=== PATIENT | female | born 1985 | race African-American/Black ===

== ENCOUNTER 2017-12-03 14:04 | Emergency (ER) | payer OTHER ==
[~2017-12-03] VITALS: Ht 160 cm; Wt 77.1 kg
[2017-12-03 15:00] LABS: ABSOLUTE BASOPHIL COUNT 0 /CUMM (0.0-0.2); ABSOLUTE EOSINOPHIL COUNT 0.2 /CUMM (0.0-0.7); ABSOLUTE GRANULOCYTE CT 3.7 /CUMM (1.4-6.5); ABSOLUTE LYMPH COUNT 2.7 /CUMM (1.2-3.4); ABSOLUTE MONOCYTE COUNT 0.6 /CUMM (0.10-0.60); BASOPHIL % 0.4 % (0.0-2.0); EOSINOPHIL % 2.4 % (0-5); GRANULOCYTE % 51.3 % (42.2-75.2); HEMATOCRIT 40.2 % (37-47); MEAN CORPUSCULAR HGB 28.7 PG (27.0-31.0); MEAN CORPUSCULAR HGB CONC 33.2 G/DL (33.0-37.0); MEAN CORPUSCULAR VOLUME 86.4 FL (81.0-99.0); MEAN PLATELET VOLUME 7.1 FL (7.4-10.4); PLATELET COUNT 310 /CUMM (130-400); RBC DISTRIBUTION WIDTH 15.4 % (11.5-14.5); RED BLOOD CELL CT 4.65 /CUMM (4.20-5.40); WHITE BLOOD CELL COUNT 7.2 /CUMM (4.8-10.8)
--- NOTE | 2017-12-03 18:03 | ED GI/GU/ABDOMINAL COMPLAINT ---
History of Present Illness General Chief Complaint: Abdominal Pain/Flank Pain Stated Complaint: ABD PAIN x3 WEEKS Source: patient Exam Limitations: no limitations Vital Signs & Intake/Output Vital Signs & Intake/Output Vital Signs Date Time Temp Pulse Resp B/P B/P Pulse O2 O2 Flow FiO2 Mean Ox Delivery Rate 12/03 1713 Room Air 12/03 1427 96.8 72 16 158/11 97 Room Air Allergies Coded Allergies: NO KNOWN ALLERGIES (10/12/11) Reconcile Medications Tylenol With Codeine (Tylenol With Codeine #3 Tablet) 300 MG-30 MG TABLET 1 TAB PO Q4-6 PRN PRN pain Triage Note: PT PRESENTS TO THE ER C/O ABD PAIN FOR 3 WEEKS.. PT STARTED WHEN PT CHANGED HER BIRTHCONTROL 3 WEEKS AGO,. PT STATES THAT SHE HAS BEEN SEXUALLY ACTIVE UNPROTECTED. PT LMP 3 WEEKS AGO.. PT STATES THAT THE PAIN IS SHARP BURNING TWISTING.. PT STATES THAT SHE HAD A ABD US YESTERDAY AND HER PCP SAID THAT IT WAS NORMAL. PT STATES THAT THE PAIN WILL NOT STOP Triage Nurses Notes Reviewed? yes LMP (ages 10-50): unknown ? N Is pt currently ? No Onset: Gradual Duration: week(s): (3), changing over time, continues in ED, getting worse Timing: single episode today Quality/Severity: cramping Severity Numbers: 8 Location: generalized abdomen Radiation: no radiation Activities at Onset: none Prior Abdominal Problems: none Past Sexual History: Unobtainable at this time No Modifying Factors: none Modifying Factors: Worsens With: palpation. Associated Symptoms: nausea/vomiting HPI: 32-year-old female with no past medical history the center evaluation of abdominal pain. Patient states that she first noticed this pain about 3 weeks ago and has been persistent. The pain is located diffusely in the abdomen worse on the right side. There is no trauma or triggering event. The pain is present every day for the past 3 weeks but is worse on some days than others. She reports associated nausea but no vomiting. No chest pain shortness of breath back pain diarrhea or recent surgery recent trauma. She's been taking Tylenol and ibuprofen as needed for pain without much improvement. She never had this before. No urinary symptoms or vaginal discharge. She had an ultrasound done with her primary care doctor yesterday that was within normal limits. Past History Travel History Traveled to [place] past 21 day No Medical History Any Pertinent Medical History? see below for history Surgical History Surgical History: non-contributory Psychosocial History What is your primary language E[place]rean Tobacco Use: Quit >30 days ago Family History Hx Contributory? No Review of Systems Review of Systems Constitutional: Reports: no symptoms. EENTM: Reports: no symptoms. Respiratory: Reports: no symptoms. Cardiovascular: Reports: no symptoms. GI: Reports: see HPI, abdominal pain, nausea. Genitourinary: Reports: no symptoms. Musculoskeletal: Reports: no symptoms. Skin: Reports: no symptoms. Neurological/Psychological: Reports: no symptoms. Hematologic/Endocrine: Reports: no symptoms. Immunologic/Allergic: Reports: no symptoms. All Other Systems: Reviewed and Negative Physical Exam Physical Exam General Appearance: well developed/nourished, no apparent distress, alert, awake Head: atraumatic, normal appearance Eyes: Bilateral: normal appearance, PERRL, EOMI, normal inspection. Ears, Nose, Throat, Mouth: hearing grossly normal, moist mucous membrane Neck: normal inspection, supple, full range of motion Respiratory: normal breath sounds, chest non-tender, quiet respiration, lungs clear Cardiovascular: regular rate/rhythm, normal peripheral pulses Peripheral Pulses: 2+ radial (R), 2+ radial (L) Gastrointestinal: normal bowel sounds, soft, no organomegaly, tenderness ( DIFFUSE worse epigastric ) Back: normal inspection, normal range of motion, no vertebral tenderness Extremities: normal range of motion Neurologic/Psych: no motor/sensory deficits, awake, alert, oriented x 3, normal gait Skin: intact, normal color, warm/dry Core Measures ACS in differential dx? No Sepsis Present: No Sepsis Focused Exam Completed? No Progress Differential Diagnosis: appendicitis, biliary colic, bowel obstruction, colon cancer, cholecystitis, diverticulitis, ectopic , gastritis, kidney stone, ovarian cyst, ovarian torsion, PID/cervicitis, peptic ulcer, SBO, UTI/ pyelo Plan of Care: Orders Procedure Date/time Status Add-on Test (ER Only) 12/03 1554 Active URINALYSIS 12/03 1443 Complete URINE 12/03 1435 Complete COMPREHENSIVE METABOLIC PANEL 12/03 1435 Complete CBC WITHOUT DIFFERENTIAL 12/03 1435 Complete Laboratory Tests 12/03/17 1445: Anion Gap 14, Estimated GFR > 60, BUN/Creatinine Ratio 15.7, Glucose 83, Calcium 9.8, Total Bilirubin 0.5, AST 22, ALT 29, Alkaline Phosphatase 61, Total Protein 7.9, Albumin 4.6, Globulin 3.3, Albumin/Globulin Ratio 1.4, CBC w Diff NO MAN DIFF REQ, RBC 4.65, MCV 86.4, MCH 28.7, MCHC 33.2, RDW 15.4 H, MPV 7.1 L, Gran % 51.3, Lymphocytes % 37.4, Monocytes % 8.5, Eosinophils % 2.4, Basophils % 0.4, Absolute Granulocytes 3.7, Absolute Lymphocytes 2.7, Absolute Monocytes 0.6, Absolute Eosinophils 0.2, Absolute Basophils 0 12/03/17 1443: Urinalysis LIGHT H, Urine Color YEL, Urine Clarity CLEAR, Urine pH 7.0, Ur Specific [place] 1.025, Urine Protein NEG, Urine Ketones NEG, Urine Nitrite NEG, Urine Bilirubin NEG, Urine Urobilinogen 0.2, Ur Leukocyte Esterase NEG, Ur Microscopic SEDIMENT EXAMINED, Urine RBC 5-10 H, Urine WBC 1-3 H, Ur Epithelial Cells MOD H, Urine Hemoglobin MOD H, Urine Glucose NEG, Urine Test NEGATIVE Patient seen and evaluated. She is reporting diffuse abdominal pain worse on the right side and epigastric area. This been going on for 3 weeks constantly. No nausea vomiting or diarrhea. She states that sometimes the pain is worse with eating. On exam she has some epigastric tenderness. We'll check basic labs urinalysis and a CT scan of the abdomen and pelvis. Patient had an ultrasound done yesterday that was within normal limits. Patient was medicated with IV Toradol. Blood work is within normal limits. Urinalysis shows some hematuria patient is not having any urinary symptoms. She reports that the hematuria is chronic and has been evaluated by urology. The scan shows a 2.5cm diameter left ovarian cyst. No other acute findings. On reevaluation patient has no left pelvic or left lower quadrant tenderness. Her tenderness is in the right side and epigastric area. Considered ovarian torsion. Patient does reports an improvement with Toradol. Reviewed all results of today's visit with patient. Advised her to use omeprazole once or twice daily as needed for pain. Avoid greasy fatty spicy foods. Tylenol with codeine for severe pain only. Make a follow-up with a GI doctor primary care doctor and [facility]. Monitor symptoms return with any concerns. Discussed return precautions in detail patient agrees the plan. Diagnostic Imaging: Viewed by Me: CT Scan. Discussed w/RAD: CT Scan. Radiology Impression: PATIENT: RONAN PEREZ PRESENT AGE: 32 PATIENT ACCOUNT NO: [id number] : 87 LOCATION: [facility] ORDERING PHYSICIAN: Wilfrid LUGO SERVICE DATE: 12/03/17 EXAM TYPE: CAT - CT ABD & PELVIS W IV CONTRAST EXAMINATION: CT ABDOMEN AND PELVIS WITH CONTRAST CLINICAL INFORMATION: Right lower quadrant abdominal pain COMPARISON: 12/02/2017 ultrasound and 04/10/2014 CT scan TECHNIQUE: Multidetector volumetric imaging was performed of the abdomen and pelvis following IV administration of 95 mL of Optiray 320 intravenous contrast. Sagittal and coronal reformatted images were obtained on the technologist's workstation. DLP: 431.84 mGy-cm FINDINGS: LUNG BASES: The visualized lung bases demonstrate the scattered nodularity along the subpleural surface of the bilateral lower lobes. This could represent developing scar and partially seen. The lungs are otherwise clear. No pleural effusion. LIVER, GALLBLADDER, AND BILIARY TREE: The liver is normal in size, shape, and attenuation. No focal hepatic lesion or biliary ductal dilatation is present. The gallbladder is unremarkable with no evidence of radiopaque gallstones, gallbladder wall thickening, or obvious pericholecystic inflammatory changes. PANCREAS: Unremarkable. SPLEEN: Unremarkable. ADRENAL GLANDS: Unremarkable. KIDNEYS AND URETERS: The kidneys are normal in size, shape, and attenuation. No hydronephrosis, hydroureter, or calculi seen. No perinephric stranding. BLADDER: The urinary bladder is partially full and unremarkable. GASTROINTESTINAL TRACT: The small and large bowel are unremarkable. The appendix is unremarkable. ABDOMINAL WALL: No significant hernia is appreciated. LYMPH NODES: Normal. VASCULAR: Unremarkable. PELVIC VISCERA: The uterus is unremarkable based on CT appearance. There is a 2.2 x 2.5 cm left ovarian cyst with thin rim enhancement. This could represent a ruptured/dominant follicle. The finding is better seen on axial image 526 from series 3 and coronal image 58. The right adnexa is unremarkable based on CT appearance. No pelvic free fluid. OSSEOUS STRUCTURES: Unremarkable. IMPRESSION: No urinary stone. Normal appendix. Findings suggestive of a dominant left ovarian follicle/cyst. No pelvic free fluid. DICTATED BY: Kathrin Kuo MD DATE/TIME DICTATED:12/03/171817 BEAMING MACHINE OPERATOR:BAUTISTA DATE/TIME TRANSCRIBED:12/03/171817 Initial ED EKG: none Departure Departure Disposition: HOME OR SELF CARE Condition: Stable Clinical Impression Primary Impression: Abdominal pain Qualifiers: Abdominal location: epigastric Qualified Code: R10.13 - Epigastric pain Referrals: Devon PARKER,Jorden LUGO,Peyton Peck (PCP/Family) Additional Instructions: REST and drink plenty of fluids. Take Prilosec once or twice daily as needed for pain. tylenol with codeine as needed for severe pain only. make a follow up with your primary care docotor and provided gi doctor LUIS. You should also see her [facility] doctor. Moniotr symptoms closely return immediately if any concerns. Departure Forms: Customer Survey General Discharge Information Prescriptions: Current Visit Scripts Tylenol With Codeine (Tylenol With Codeine #3 Tablet) 1 TAB PO Q4-6 PRN PRN pain #10 TAB
--- NOTE | 2017-12-03 18:33 | CT SCAN REPORT ---
EXAMINATION: CT ABDOMEN AND PELVIS WITH CONTRAST CLINICAL INFORMATION: Right lower quadrant abdominal pain COMPARISON: 12/02/2017 ultrasound and 04/10/2014 CT scan TECHNIQUE: Multidetector volumetric imaging was performed of the abdomen and pelvis following IV administration of 95 mL of Optiray 320 intravenous contrast. Sagittal and coronal reformatted images were obtained on the technologist's workstation. DLP: 431.84 mGy-cm FINDINGS: LUNG BASES: The visualized lung bases demonstrate the scattered nodularity along the subpleural surface of the bilateral lower lobes. This could represent developing scar and partially seen. The lungs are otherwise clear. No pleural effusion. LIVER, GALLBLADDER, AND BILIARY TREE: The liver is normal in size, shape, and attenuation. No focal hepatic lesion or biliary ductal dilatation is present. The gallbladder is unremarkable with no evidence of radiopaque gallstones, gallbladder wall thickening, or obvious pericholecystic inflammatory changes. PANCREAS: Unremarkable. SPLEEN: Unremarkable. ADRENAL GLANDS: Unremarkable. KIDNEYS AND URETERS: The kidneys are normal in size, shape, and attenuation. No hydronephrosis, hydroureter, or calculi seen. No perinephric stranding. BLADDER: The urinary bladder is partially full and unremarkable. GASTROINTESTINAL TRACT: The small and large bowel are unremarkable. The appendix is unremarkable. ABDOMINAL WALL: No significant hernia is appreciated. LYMPH NODES: Normal. VASCULAR: Unremarkable. PELVIC VISCERA: The uterus is unremarkable based on CT appearance. There is a 2.2 x 2.5 cm left ovarian cyst with thin rim enhancement. This could represent a ruptured/dominant follicle. The finding is better seen on axial image 526 from series 3 and coronal image 58. The right adnexa is unremarkable based on CT appearance. No pelvic free fluid. OSSEOUS STRUCTURES: Unremarkable. IMPRESSION: No urinary stone. Normal appendix. Findings suggestive of a dominant left ovarian follicle/cyst. No pelvic free fluid.
[2017-12-03] MEDS ORDERED: TYLENOL WITH C1 EACH PO (18:51)
[2017-12-03 18:59] VITALS: BP 169/99
== END 2017-12-03 19:00 ==
LOC: ERH 14:04
PROVIDERS: Emergency Medicine
DX: R10.84 Generalized abdominal pain (principal); Z87.891 Personal history of nicotine dependence
CPT/HCPCS: 74177; 81001; 81025; 96374; J1885